=== PATIENT | male | born 1975 | race Caucasian/White ===

== ENCOUNTER 2016-09-10 14:33 | Emergency (ER) | payer MEDICAID ==
[2016-09-10 14:42] VITALS: TEMP 97.8
--- NOTE | 2016-09-10 15:45 | CT ---
EXAMINATION TYPE: CT brain wo con DATE OF EXAM: 09/10/2016 3:40 PM COMPARISON: NONE HISTORY: Headache for [address] DLP: 1159 mGycm Automated exposure control for dose reduction was used. FINDINGS: There is no acute intracranial hemorrhage, mass effect, or midline shift identified. The ventricles and sulci are within normal limits in size. The globes are intact and the visualized sinuses are maddison ar. IMPRESSION: No acute intracranial hemorrhage, mass effect, or midline shift is seen.
--- NOTE | 2016-09-10 16:26 | ED ---
General Adult HPI - General Chief complaint: Headache Stated complaint: MIGRAINE, HYPERTENSION Time Seen by Provider: 09/10/16 15:07 Source: patient, RN notes reviewed Mode of arrival: wheelchair - History of Present Illness Initial comments: Chief complaint and history of present illness is a 40-year-old male reports she 's had a headache on the right forehead area on again off again for 5 days. Tylenol usually gets rid of the headache for several hours. No associated nausea. Slight photophobia and slight increase of headache pain with noise. Patient's blood pressure upon arrival is 145/98. After approximately half out of blood pressure came down slightly and headache went away. - Related Data Home Medications Medication Instructions Recorded Confirmed Acetaminophen Tab [Tylenol Tab] 650 mg PO Q6H PRN 09/10/16 09/10/16 Krill Oil 500 mg PO DAILY 09/10/16 09/10/16 Loratadine-Pseudoeph 5-120 mg 1 tab PO Q12H PRN 09/10/16 09/10/16 [Claritin-D 12 HR] Multivitamins, Thera [Multivitamin] 1 tab PO DAILY 09/10/16 09/10/16 Previous Rx's Medication Instructions Recorded Butalb/Acetaminophen/Caffeine 1 cap PO Q4HR #10 cap 09/10/16 [Fioricet 50-300-40 mg Capsule] Lisinopril [Zestril] 5 mg PO DAILY #60 tab 09/10/16 Allergies Allergy/AdvReac Type Severity Reaction Status Date / Time No Known Allergies Allergy Verified 09/10/16 15:42 Review of Systems ROS Statement: Those systems with pertinent positive or pertinent negative responses have been documented in the HPI. Review of systems. Patient reports the headaches on the right side before it is not going toward the eye. Mild photophobia is noted mild increase in pain associated with noise. No sweats or nausea or vomiting. No stiff neck. No change in visual acuity. No chest pain shortness breath GI/ problems no neuro deficits. All systems were otherwise reviewed are negative. Past medical problems significant hypercholesterolemia which the patient reports she does not take any medications for. Surgeries tonsillectomy and had I Lasix surgery. He also reports rather the recently he had discomfort or problem with his right eye for which he went to an relationship advisor and she was hydrated for him to a retinal specialist which he reports has not happened yet and he is to contact them to repeat request rapid referral. He reports his eye , visual acuity is better now than it was weeks ago when the incident first started. Patient otherwise denies ALLERGIES nonsmoker drink alcohol socially rarely. Family history no cancers or strokes. ROS Other: All systems not noted in ROS Statement are negative. Past Medical History Additional Past Medical History / Comment(s): central serous cricoretinopathy History of Any Multi-Drug Resistant Organisms: None Reported Past Surgical History: Tonsillectomy Additional Past Surgical History / Comment(s): lasix eye surgery Past Psychological History: No Psychological Hx Reported Smoking Status: Never smoker Past Alcohol Use History: Occasional Past Drug Use History: None Reported General Exam - General Exam Comments Initial Comments: General: The patient is awake and alert, in no distress, and does not appear acutely ill. Here because of a headache the right side of his forehead. He's been complaining of 5 days his coworkers insisted it came down to the emergency room. 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 Vital signs show temperature 97.8 pulse 95 respiratory rate 16 pulse ox 96% room air blood pressure 145/98 Eye: Pupils are equal, round and reactive to light, extra-ocular movements are intact ; there is normal conjunctiva bilaterally. No signs of icterus. Ears, nose, mouth and throat: There are moist mucous membranes and no oral lesions. Neck: The neck is supple, there is no tenderness , no carotid bruit, nitro cervical lymphadenopathy. No evidence of any meningeal irritation or meningismus. Cardiovascular: There is a regular rate and rhythm. No murmur, rub or gallop is appreciated. Respiratory: Lungs are clear to auscultation, respirations are non-labored, breath sounds are equal. No wheezes, stridor, rales, or rhonchi. Gastrointestinal: Soft, non-distended, non-tender abdomen without masses or organomegaly noted. There is no rebound or guarding present. No CVA tenderness. Bowel sounds are unremarkable. Back: There is no tenderness to palpation in the midline. There is no obvious deformity. No rashes noted. Musculoskeletal: Normal ROM, no tenderness, There is no pedal edema. There is no calf tenderness or swelling. Sensation intact. Pulses equal bilaterally 2+. Neurological: CN II-XII intact, There are no obvious motor or sensory deficits. Coordination appears grossly intact. Speech is normal. No focal or lateralizing findings. Skin: Skin is warm and dry and no rashes or lesions are noted. Course Vital Signs 09/10/16 09/10/16 09/10/16 14:35 15:03 15:53 Temperature 97.8 F Pulse Rate 83 95 92 Respiratory 18 16 20 Rate Blood Pressure 155/103 145/98 141/101 O2 Sat by Pulse 96 96 98 Oximetry Medical Decision Making - Medical Decision Making CT the brain was done and reviewed by radiologist his findings are there is no acute intracranial hemorrhage, mass effect, or midline shift identified. The ventricles and sulci within normal limits in size. The globes are intact and the visualized sinuses are clear. Impression; no acute intracranial hemorrhage , mass effect, or midline shift seen. As read by Dr. al We discussed the findings. He will follow up with his family physician he will be placed on lisinopril 5 mg daily. His blood pressure checked while at home and on the job. He is to use Fioricet for headaches at home. He's a follow-up with the retinal specialist on the relationship advisor as soon as possible. Also to watch for any rash that might be shingles. Disposition Clinical Impression: Acute headache, Hypertension Disposition: HOME SELF-CARE Condition: Fair Instructions: Acute Headache (ED), General Headache (ED) Additional Instructions: Take lisinopril 5 mg daily. Get blood pressure checked twice a day. Follow-up with family physician. Follow-up with her relationship advisor for the referral to a retinal specialist. Take Tylenol while at work for control of headache. Use Fioricet at home for headache as needed. Return emergency room as needed. Prescriptions: Butalb/Acetaminophen/Caffeine [Fioricet 50-300-40 mg Capsule] 1 cap PO Q4HR #10 cap Lisinopril [Zestril] 5 mg PO DAILY #60 tab Time of Disposition: 16:28
[2016-09-10 16:33] VITALS: BP 136/95; PULSE 89; RESP 16
== END 2016-09-10 16:34 | disposition home or self-care (01) ==
LOC: EC 14:33
DX: R51 Headache (principal); I10 Essential (primary) hypertension
CPT/HCPCS: 70450; 99284

== ENCOUNTER → 2016-09-30 | Outpatient (CLI) | payer MEDICAID ==
[2016-09-30 07:22] LABS: Appearance,Urine Clear (Clear); Basophils % (A) 1 %; Bilirubin,Urine Negative (Negative); CH 32.4; CHCM 35.8; Eosinophils # (A) 0.2 k/uL (0-0.7); Eosinophils % (A) 3 %; Glucose,Urine (UA) Negative (Negative); HCT 45.8 % (39.0-53.0); HDW 2.63; HGB 15.6 gm/dL (13.0-17.5); Ketones,Urine 1+ (Negative); Leukocyte Esterase,Urine Negative (Negative); Luc # (Auto) 0.21; Luc % (Auto) 4; Lymphocytes # (A) 1.6 k/uL (1.0-4.8); Lymphocytes % (A) 30 %; MCH 31.1 pg (25.0-35.0); MCHC 34.1 g/dL (31.0-37.0); MCV 91.1 fL (80.0-100.0); Mean Platelet Volume 7.9; Monocytes # (A) 0.5 k/uL (0-1.0); Monocytes % (A) 9 %; Neutrophils # (A) 2.8 k/uL (1.3-7.7); Neutrophils % (A) 53 %; Nitrite,Urine Negative (Negative); Protein,Urine Negative (Negative); RBC 5.03 m/uL (4.30-5.90); RDW 13.1 % (11.5-15.5); Specific Gravity,Urine 1.011 (1.001-1.035); UA Billing (MACRO vs. MICRO) CHEM; Urobilinogen,Urine <2.0 mg/dL (<2.0); WBC 5.3 k/uL (3.8-10.6); WBC (Perox) 5.26
[2016-09-30 07:46] LABS: ALT 73 U/L (21-72); AST 40 U/L (17-59); Alkaline Phosphatase 43 U/L (38-126); Anion Gap 13 mmol/L; Blood Urea Nitrogen 13 mg/dL (9-20); Calcium 9.6 mg/dL (8.4-10.2); Carbon Dioxide 24 mmol/L (22-30); Chloride 103 mmol/L (98-107); Cholesterol 250 mg/dL (<200); Creatine Kinase 83 U/L (55-170); Glucose 99 mg/dL (74-99); HDL Cholesterol 59 mg/dL (40-60); Non-African American GFR(MDRD) >60 (>60 ml/min/1.73 sqM); Potassium 4.1 mmol/L (3.5-5.1); Sodium 140 mmol/L (137-145); Total Bilirubin 1.3 mg/dL (0.2-1.3); Triglycerides 116 mg/dL (<150)
[2016-09-30 10:27] LABS: Hemoglobin A1C 5.4 % (4.2-6.1)
== END | disposition home or self-care (01) ==
LOC: LABWHC1 06:42
PROVIDERS: ATTEND Internal Medicine
DX: E78.5 Hyperlipidemia, unspecified (principal); E55.9 Vitamin D deficiency, unspecified; N40.0 Benign prostatic hyperplasia without lower urinary tract symptoms; R00.2 Palpitations; R79.9 Abnormal finding of blood chemistry, unspecified
CPT/HCPCS: 36415; 80053; 80061; 81003; 82306; 82550; 83036; 84439; 84443; 85025